=== PATIENT | female | born 1945 | race Hispanic/Latino ===

== ENCOUNTER → 2018-04-12 | Outpatient (CLI) | payer MEDICARE, OTHER ==
[~2018-04-12] MED LIST: ASPI-555 PO; BUDE10.2 PUFF; CLON0.1T PO; CLON1PAT14 ID; DIGO125T87 PO; DULO60CA63 PO; FERR325T22 PO; FISH1CAP50 PO; FURO20TA6 PO; LEVO200T10 PO; METF-444 PO; OLOP5DRO14 OU; OMEP40CA37 PO; PRAV20TA PO; PREM625 PO; QUIN20TA26 PO; SOLI10TA PO; TOPI25CA12 PO; TRAM-355 PO
== END | disposition home or self-care (01) ==
LOC: SHCH 10:46
PROVIDERS: ATTEND Internal Medicine Cardiovascular Disease
DX: I65.23 Occlusion and stenosis of bilateral carotid arteries (principal)
CPT/HCPCS: 93880

== ENCOUNTER → 2020-01-31 | Outpatient (CLI) | payer OTHER ==
[~2020-01-31] MED LIST changes: -ASPI-555 PO; +ASPI-556 PO; +DIGO125T71 PO; -DIGO125T87 PO; -DULO60CA63 PO; +DULO60CA64 PO; +OMEP40CA13 PO; -OMEP40CA37 PO
== END | disposition home or self-care (01) ==
LOC: SHCH 08:35
PROVIDERS: ATTEND Internal Medicine Cardiovascular Disease
DX: I10 Essential (primary) hypertension (principal)
CPT/HCPCS: 93306

== ENCOUNTER 2020-11-10 05:36 | Day surgery (SDC) | payer MEDICARE ==
[2020-11-06 11:17] LABS: BASOPHILS % (AUTO) 0.2 % (0.0-5.0); EOSINOPHILS % (AUTO) 1.3 % (0.0-8.0); HEMATOCRIT 42.5 % (36-48); LYMPHOCYTES % (AUTO) 27.7 % (21.0-51.0); MEAN CORPUSCULAR HGB CONC 31.8 g/dL (32.0-36.0); MEAN CORPUSCULAR VOLUME 94.4 fL (79-99); MONOCYTES % (AUTO) 5.7 % (3.0-13.0); NEUTROPHILS % (AUTO) 64.8 % (40.0-77.0); PLATELET COUNT (AUTO) 212 K/uL (130-400); RED CELL DISTRIBUTION WIDTH 12.9 % (11.0-15.5); WHITE BLOOD COUNT (AUTO) 12.9 K/uL (4.8-10.8)
[2020-11-06 11:26] LABS: CREATININE 1.2 mg/dL (0.5-1.5); POTASSIUM 4.5 mmol/L (3.5-5.1)
[2020-11-06 13:27] LABS: INR 1.27 (0.85-1.15); PROTHROMBIN TIME 13.5 SEC (9.6-11.6)
[2020-11-06 13:28] LABS: PARTIAL THROMBOPLASTIN TIME 36.5 SEC (26.3-35.5)
[2020-11-10] VITALS (12 sets, daily range): BP systolic 105–146; BP diastolic 44–76
[~2020-11-10] VITALS: Ht 149.9 cm; Wt 73.4 kg
[~2020-11-10 05:36] MED LIST changes: -OMEP40CA13 PO; +OMEP40CA21 PO
[2020-11-10] MEDS ORDERED: SODIUM CHLORIDE 0.9% 1000ML 1,000 ML IV ONE (06:10)
[2020-11-10] MEDS ORDERED: FENTANYL CITRATE PF 50 MCG/1 ML 2ML VIAL ONE (08:01)
[2020-11-10] MEDS ORDERED: MIDAZOLAM HCL 1 MG/ML 2ML VIAL ONE ×3 (08:01→08:49)
[2020-11-10] MEDS ORDERED: BUPIVACAINE/PF 0.25% 30ML VIAL IJ ONE (08:01)
[2020-11-10] MEDS ORDERED: LIDOCAINE HCL 1% MDV 50ML VIAL ONE (08:02)
[2020-11-10] MEDS ORDERED: VANCOMYCIN IV ONE (08:02)
[2020-11-10] MEDS ORDERED: LISI20TA24 PO (08:30)
[2020-11-10] MEDS ORDERED: SITA50TA PO (08:30)
[2020-11-10] MEDS ORDERED: VITAMIN D3 PO (08:30)
[2020-11-10] MEDS ORDERED: METO100T14 PO (08:30)
[2020-11-10] MEDS ORDERED: METF-446 PO (08:30)
[2020-11-10] MEDS ORDERED: GLIP10TA9 PO (08:30)
[2020-11-10] MEDS ORDERED: DOXA8TAB81 PO (08:30)
[2020-11-10] MEDS ORDERED: LEVO112C4 PO (08:30)
[2020-11-10] MEDS ORDERED: RIVA20TA PO (08:30)
[2020-11-10] MEDS ORDERED: AMLO-257 PO (08:30)
[2020-11-10] MEDS ORDERED: LEVO125C4 PO (08:30)
[2020-11-10] MEDS ORDERED: FISH1CAP27 PO (08:30)
[2020-11-10] MEDS ORDERED: ERGO500093 PO (08:30)
[2020-11-10] MEDS ORDERED: DULO20CA18 PO (08:30)
[2020-11-10] MEDS ORDERED: MEPERIDINE-PF 25 MG/ML SYG ONE ×2 (08:46→08:49)
[2020-11-10] MEDS ORDERED: ONDANSETRON HCL 4 MG/2 ML VIAL IV PRN (09:30)
[2020-11-10] MEDS ORDERED: ACETAMINOPHEN 325 MG TAB PO PRN ×2 (09:30)
== END 2020-11-10 15:30 | disposition home or self-care (01) ==
LOC: DAH 05:36
PROVIDERS: ATTEND Internal Medicine Cardiovascular Disease
DX: Z45.010 Encounter for checking and testing of cardiac pacemaker pulse generator [battery] (principal); I44.2 Atrioventricular block, complete; I49.5 Sick sinus syndrome; I10 Essential (primary) hypertension; F03.90 Unspecified dementia, unspecified severity, without behavioral disturbance, psychotic disturbance, mood disturbance, and anxiety; E78.5 Hyperlipidemia, unspecified; G47.33 Obstructive sleep apnea (adult) (pediatric); I48.0 Paroxysmal atrial fibrillation; Z86.73 Personal history of transient ischemic attack (TIA), and cerebral infarction without residual deficits; Z88.0 Allergy status to penicillin; Z79.01 Long term (current) use of anticoagulants; Z79.84 Long term (current) use of oral hypoglycemic drugs; Z79.899 Other long term (current) drug therapy
CPT/HCPCS: 33228; 36415; 80048; 82948; 85025; 85610; 85730; 93005; A4215; A4216; A4221; A4222; A4223 ×3; A4606; A4663; C1785; J2175 ×2; J2250 ×3; J3010; J3370; J3490 ×2; J7030; 99156; 99157

== ENCOUNTER → 2021-07-23 | Outpatient (CLI) | payer MEDICARE ==
[~2021-07-23] MED LIST changes: +AMLO-257 PO; -BUDE10.2 PUFF; -CLON0.1T PO; -CLON1PAT14 ID; +DOXA8TAB81 PO; +DULO20CA18 PO; -DULO60CA64 PO; +ERGO500093 PO; +FISH1CAP27 PO; -FISH1CAP50 PO; -FURO20TA6 PO; +GLIP10TA9 PO; +LEVO112C4 PO; +LEVO125C4 PO; -LEVO200T10 PO; +LISI20TA24 PO; -METF-444 PO; +METF-446 PO; +METO100T14 PO; -OLOP5DRO14 OU; -OMEP40CA21 PO; -PREM625 PO; -QUIN20TA26 PO; +RIVA20TA PO; +SITA50TA PO; -SOLI10TA PO; -TOPI25CA12 PO; -TRAM-355 PO; +VITAMIN D3 PO
== END | disposition home or self-care (01) ==
LOC: SHCH 13:04
PROVIDERS: ATTEND Internal Medicine Cardiovascular Disease
DX: I11.9 Hypertensive heart disease without heart failure (principal); I08.0 Rheumatic disorders of both mitral and aortic valves; E78.5 Hyperlipidemia, unspecified
CPT/HCPCS: 93306

== ENCOUNTER → 2022-10-22 | Outpatient (CLI) | payer MEDICARE | END | disposition home or self-care (01) | LOC: SHCH 12:41 | PROVIDERS: ATTEND Internal Medicine Cardiovascular Disease | DX: I08.0 Rheumatic disorders of both mitral and aortic valves (principal); I11.9 Hypertensive heart disease without heart failure; I48.0 Paroxysmal atrial fibrillation; E78.5 Hyperlipidemia, unspecified | CPT/HCPCS: 93306 ==

== ENCOUNTER → 2022-11-10 | Outpatient (CLI) | payer MEDICARE ==
[2022-11-10 12:21] LABS: DIGOXIN 1.12 ng/mL (0.50-2.00); MAGNESIUM 1.6 mg/dL (1.80-2.40); THYROID STIMULATING HORMONE 0.16 uIU/mL (0.36-3.74)
[2022-11-10 13:21] LABS: T4 (THYROXINE) 12.5 ug/dL (4.7-13.3)
== END | disposition home or self-care (01) ==
LOC: LAB 10:34
PROVIDERS: ATTEND Internal Medicine Cardiovascular Disease
DX: I10 Essential (primary) hypertension (principal); E78.5 Hyperlipidemia, unspecified; I48.0 Paroxysmal atrial fibrillation; Z79.01 Long term (current) use of anticoagulants; Z79.899 Other long term (current) drug therapy; Z95.0 Presence of cardiac pacemaker
CPT/HCPCS: 36415; 80162; 83735; 83880; 84436; 84443; 84479